=== PATIENT | male | born 1950 | race African-American/Black ===

== ENCOUNTER 2017-10-02 18:02 | Emergency (ER) | payer BC, MEDICARE ==
[2017-10-02] MEDS ORDERED: Ibuprofen 200 MG TAB ONE (19:32)
[2017-10-02] MEDS ORDERED: Acetaminophen 500 MG TAB ONE (20:54)
[2017-10-02 21:03] LABS: Hemoglobin 10.9 g/dL (14.0-18.0); Mean Corpuscular HGB CONC 30.1 g/dL (32.0-36.0); Mean Corpuscular Hemoglobin 22.5 pg (27.0-31.0); Mean Corpuscular Volume 74.8 fl (80.0-94.0); Mean Platelet Volume 8.5 fL (7.4-10.4); Platelet Count 289 thou/uL (130-400); Red Blood Cell (RBC) Count 4.86 mill/uL (4.70-6.10); White Blood Cell (WBC) Count 11.8 thou/uL (4.8-10.8)
--- NOTE | 2017-10-02 21:03 | RAD ---
CHEST TWO VIEW: History: Cough. Comparison: None. FINDINGS: Lungs are clear. No pneumothorax or effusion. Lungs are hyperinflated. There is a nodules present in the right lower lobe. Most likely calcified granuloma given how well it is visualized and measures under 3 mm. IMPRESSION: 1. Lung hyperinflation suggestive of obstructive disease. 2. 3 mm nodule right lung base, likely a calcified granuloma. Follow up radiograph in 6 months recomm ended. CODE: Lung nodule POS: [facility]
[2017-10-02 21:23] LABS: ALT (SGPT) 22 U/L (8-55); AST (SGOT) 26 U/L (5-34); Albumin 4.2 g/dL (3.4-4.8); Alkaline Phosphatase 74 U/L (40-150); Anion Gap 13 mmol/L (10-20); BUN (Urea Nitrogen) 12 mg/dL (8.4-25.7); Bilirubin, Total 0.5 mg/dL (0.2-1.2); Calc. Creatinine Clearance 0 mL/min (70-130); Calcium 9.8 mg/dL (7.8-10.44); Carbon Dioxide 25 mmol/L (23-31); Chloride 98 mmol/L (98-107); Estimated GFR-MDRD 74; Globulin 4.5 g/dL (2.4-3.5); Glucose 142 mg/dL (80-115); Potassium 4.1 mmol/L (3.5-5.1); Protein, Total 8.7 g/dL (5.8-8.1); Sodium 132 mmol/L (136-145)
[2017-10-02 21:29] LABS: #Monocytes 1.3 thou/uL (0.11-0.59); #Neutrophils 8.5 thou/uL (1.40-6.50); %Basophils 0.1 % (0.0-1.0); %Eosinophils 0.1 % (0.0-10.0); %Lymphocytes 16.9 % (21.0-51.0); %Monocytes 10.9 % (0.0-10.0); %Neutrophils 71.9 % (42.0-75.0); Hypochromia SLIGHT = 6-15 cells (100X) (0-5/hpf); MDiff Complete? YES; Microcytosis SLIGHT = 6-15 cells (100X) (0-5/hpf)
== END 2017-10-02 23:10 | disposition home or self-care (01) ==
LOC: ERS 18:02
DX: B34.9 Viral infection, unspecified (principal); I10 Essential (primary) hypertension; E11.9 Type 2 diabetes mellitus without complications; J44.9 Chronic obstructive pulmonary disease, unspecified
CPT/HCPCS: 71046; 80053; 83605; 83880; 85025; 85379; 94640; 96360; J7620

== ENCOUNTER 2017-10-13 08:12 | Observation (INO) | payer BC, MEDICARE ==
[2017-10-13 08:40] LABS: #Eosinphils 0.1 thou/uL (0.0-0.7); #Lymphocytes 1.7 thou/uL (1.20-3.40); #Monocytes 1.1 thou/uL (0.11-0.59); #Neutrophils 8.2 thou/uL (1.40-6.50); %Basophils 0.1 % (0.0-1.0); %Eosinophils 0.7 % (0.0-10.0); %Neutrophils 74.3 % (42.0-75.0); Hemoglobin 10.7 g/dL (14.0-18.0); Mean Corpuscular HGB CONC 29.2 g/dL (32.0-36.0); Mean Corpuscular Volume 75.5 fl (80.0-94.0); Mean Platelet Volume 8.5 fL (7.4-10.4); Platelet Count 339 thou/uL (130-400); RBC Distribution Width 16.3 % (11.5-14.5); Red Blood Cell (RBC) Count 4.84 mill/uL (4.70-6.10)
[2017-10-13 08:59] LABS: ALT (SGPT) 15 U/L (8-55); AST (SGOT) 15 U/L (5-34); Albumin 3.8 g/dL (3.4-4.8); Alkaline Phosphatase 57 U/L (40-150); Anion Gap 13 mmol/L (10-20); BUN (Urea Nitrogen) 10 mg/dL (8.4-25.7); Bilirubin, Total 0.5 mg/dL (0.2-1.2); Calc. Creatinine Clearance 0 mL/min (70-130); Calcium 9.4 mg/dL (7.8-10.44); Carbon Dioxide 24 mmol/L (23-31); Chloride 103 mmol/L (98-107); Estimated GFR-MDRD 85; Globulin 4.6 g/dL (2.4-3.5); Glucose 157 mg/dL (80-115); Potassium 3.8 mmol/L (3.5-5.1); Protein, Total 8.4 g/dL (5.8-8.1); Sodium 136 mmol/L (136-145)
[2017-10-13 09:03] LABS: CKMB 0.5 ng/mL (0-6.6); Troponin I 0.055 ng/mL (< 0.028)
--- NOTE | 2017-10-13 09:09 | RAD ---
CHEST 2 VIEWS: Date: 10/13/17 HISTORY: Chest pain. COMPARISON: Chest radiograph from 10/02/17. FINDINGS: Lungs are mildly hyperinflated. No focal air space consolidation, pneumothorax, or effusion. Right lo wer lobe calcified granuloma. IMPRESSION: No acute intrathoracic abnormality. No significant change. POS: [facility]
[2017-10-13] MEDS ORDERED: Acetaminophen 325 MG TAB ONE (09:25)
[2017-10-13 09:28] LABS: Hypochromia MODERATE=16-30 cells (100X) (0-5/hpf); MDiff Complete? YES; Microcytosis MODERATE=15-30 cells (100X) (0-5/hpf); Polychromasia SLIGHT = 2-3 cells (100X) (0-2/hpf)
[2017-10-13] MEDS ORDERED: Albuterol Sulfate 2.5 mg/0.5 ml Neb ONE (09:37)
--- NOTE | 2017-10-13 10:51 | CT ---
CT ARTERIOGRAM CHEST WITH IV CONTRAST AND 3D MIP IMAGING: History: Dyspnea. Chest pain. FINDINGS: No comparison. There is good contrast opacification of the pulmonary arteries and thoracic aorta with normal branching of the great vessels. There is calcification in the arterial structures. Lungs are hyperinflated. Scattered tiny nonspecific calcified and noncalcified granulomata are appare nt. There is no pleural fluid, pneumothorax, or mediastinal adenopathy visible. IMPRESSION: 1. No CT evidence of pulmonary embolus. 2. Atherosclerosis. 3. COPD. POS: [facility]
[2017-10-13] MEDS ORDERED: Enoxaparin Sodium 100 MG/ML SYRINGE ONE (12:56)
[2017-10-13 13:37] LABS: Troponin I 0.061 ng/mL (< 0.028)
--- NOTE | 2017-10-13 14:27 | HP ---
PRIMARY CARE PHYSICIAN: This patient is recently moved from [place] to the [facility], so this is a city call admission. REASON FOR ADMISSION: Dyspnea on exertion, elevated troponin. HISTORY OF PRESENT ILLNESS: This is a 67-year-old -Portuguese male, who presented to the emerge ncy room with complaint of increasing shortness of breath. The patient reports that about 2 weeks ag o, he had a flu-like illness. At that time, he came to the emergency room and he was tested for infl uenza screen, which was negative, but he was told that he had a viral infection. At that time, the p atient was having fever, runny nose, and sore throat. He was also having increasing cough productive of yellowish sputum, and for the last one week, he is experiencing dyspnea on exertion. Even after walking a few steps, he gets out of breath. While resting, he is completely fine. After exertion, h e has to relax for a few minutes to continue work and his capacity day by day was decreasing. He den ies any orthopnea, PND, or leg swelling. He denies any currently fever. He denies any hemoptysis, c barb tenderness, dizziness, syncope. He denies any chest pain, but only chest pain happens with cough and patient also has lower back pain, which is also related with cough. The patient was not able to do his routine work at workplace and that is why he decided to come to the ER for evaluation. In the emergency room today, his WBC count is elevated. His hemoglobin is 10.7. He denies any melen a or hematochezia. His D-dimer was elevated, but CT angio was done, which was negative for pulmonary embolism. His troponin was indeterminant range. REVIEW OF SYSTEMS: The following complete review of systems was negative, unless otherwise mentioned in the HPI or below: Constitutional: Weight loss or gain, ability to conduct usual activities. Ski n: Rash, itching. Eyes: Double vision, pain. ENT/Mouth: Nose bleeding, neck stiffness, pain, tenderness. Cardiovascular: Palpitations, dyspnea on exertion, orthopnea. Respiratory: Shortness of breath, wheezing, cough, hemoptysis, fever or night sweats. Gastrointestinal: Poor appetite, abdominal pain, heartburn, nausea, vomiting, constipation, or diarrhea. Genitourinary: Urgency, frequency, dysuria, nocturia. Musculoskeletal: Pain, swelling. Neurologic/Psychiatric: Anxiety, depression. Allergy/Immunologic: Skin rash, bleeding tendency. Please see my HPI for pertinent positives and negatives. All other review of system reviewed and ne gative except as mentioned in the HPI. PAST MEDICAL HISTORY: Diabetes type 2, hypertension, dyslipidemia, COPD, ex-smoker. PAST SURGICAL HISTORY: Reviewed and negative. PAST PSYCHIATRIC HISTORY: Reviewed and negative. SOCIAL HISTORY: Patient is a former smoker. He quit smoking 3 years ago. He denies any alcohol or other illicit drug abuse. 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 FAMILY HISTORY: No strong family history of premature coronary artery disease, stroke or cancer. ALLERGIES: No known drug allergies. CURRENT HOME MEDICATIONS: Benicar 20 mg p.o. daily, Cialis 20 mg p.o. daily, Symbicort 2 puff inhala tion b.i.d., Lipitor 10 mg p.o. daily, Farxiga 10 mg p.o. daily, and Janumet XR 2 tablets p.o. daily. EMERGENCY ROOM COURSE: Patient is given Lovenox 1 mg per kg, IV fluid 1 liter, aspirin 324 mg, Atrov ent nebulization, and albuterol nebulization, as well as Tylenol 650 mg. PHYSICAL EXAMINATION: VITAL SIGNS: On arrival, blood pressure 111/76, pulse 134, respiratory rate 21, temperature 99.1, sa turation 93% on room air, weight 78.4 kilograms. GENERAL: Patient is currently alert, awake, in no obvious acute distress. HEENT: Normocephalic, atraumatic. Eyes: Pupils round, reactive to light. Extraocular muscles inta ct. ENT: Oropharynx within normal limits. Moist mucous membranes. No oral lesions. No pharyngeal eryt zackery, no exudates. NECK: Supple, no JVD, no thyromegaly, no carotid bruit, no jugular venous distention. LUNGS: Clear to auscultation, no wheezing, no rhonchi, no rales. CARDIAC: S1 and S2, regular, tachycardia, no murmur, no gallop, no rub. ABDOMEN: Soft, bowel sounds present, nontender, nondistended. No organomegaly, no mass, no suprapub ic tenderness. BACK: Patient does have bilateral paraspinal lumbar tenderness, no midline tenderness, no CVA tender ness. EXTREMITIES: Upper extremity passive movement of all joints are normal. Lower extremity, no edema. Good peripheral pulsation. SKIN: No skin rash. HEMATOLOGICAL: No lymphadenopathy. PSYCHIATRIC: Normal affect. SIGNIFICANT LABORATORY DATA: EKG showing sinus tachycardia, no acute ischemic changes. Chest x-ray showing emphysematous changes, but no consolidation. CT angio negative for pulmonary embolism, consi stent with atherosclerosis and COPD. CBC: WBC 11.0, hemoglobin 10.7, MCV 75.5, platelets 339. D-di alejandro 3.97. BMP: Sodium 136, potassium 3.8, chloride 103, carbon dioxide 24, anion gap 13, BUN 10, cr eatinine 1.06, glucose 157, calcium 9.4. LFT: AST 15, ALT 15, alkaline phosphatase 57, albumin 3.8. CK-MB 0.5, troponin I 0.055. BNP less than 10. ASSESSMENT AND PLAN: 1. Dyspnea on exertion. This patient had prolonged upper respiratory infection. His recent flu scr een was negative. After that, patient was having on and off cough, sore throat, and now patient's sy mptoms is progressed with dyspnea on exertion. At this point, differential diagnosis is pretty much broad. I am suspecting he might have underlying bronchitis given leukocytosis and that bronchitis ca using his dyspnea on exertion. Given his troponin is elevated and that is why underlying angina equi valent is also possible given his risk factors for coronary artery disease including hypertension, di abetes, dyslipidemia, and ex-smoker. His D-dimer was elevated, but CT angio is negative for pulmonar y embolism; in this way, we have completely excluded thromboembolic disorder. Viral illness and julian l cardiomyopathy is possible and that is why we are going to obtain echocardiography though BNP is no rmal. Considering angina equivalent in diabetic, patient will also perform exercise stress test for further evaluation to rule out any silent ischemia, and we will do serial cardiac enzymes. At this p oint, making all of this differential under treatment, we will continue with aspirin 325 mg p.o. sheng y, nitropatch q.8 hourly, nitroglycerin p.r.n., DuoNeb q.6 hourly, we will also start empiric Solu-Me drol 20 mg IV q.6 hourly, Mucinex 600 mg twice daily, and empiric antibiotic therapy with Levaquin 75 0 mg p.o. daily. We will obtain echocardiography to assess ejection fraction and other structural ab normality and we will closely monitor on telemetry floor for any arrhythmias. 2. Acute bronchitis with chronic obstructive pulmonary disease with possible flare up and that is wh y we will continue DuoNeb therapy q.6 hourly, Dulera two puff inhalation b.i.d., and Solu-Medrol 20 m g IV q.6 hourly, Mucinex 600 mg twice daily, and Levaquin 750 mg p.o. daily. We will also check julian l panel. 3. Elevated troponin, rule out acute coronary syndrome. We will do serial cardiac enzymes x3. Cont inue aspirin 324 mg p.o. daily, check lipid profile for risk stratification. We will check hemoglobi n A1c for overall diabetes control and we will obtain echocardiography and will perform exercise stre ss test tomorrow morning. 4. Microcytic anemia. The patient will check ferritin and iron study tomorrow morning. We will nestor ck stool for guaiac, but this patient will need outpatient colonoscopy evaluation for screening as we ll, but that will do as an outpatient basis. We will continue ferrous sulfate 325 mg p.o. daily. 5. Diabetes type 2. We will continue Farxiga 10 mg p.o. daily upon discharge. We will continue Taz umet 100 mg p.o. daily. We will hold on metformin therapy because of CT angio. We will continue ins ulin as per sliding scale per protocol. Diabetic diet will be given. 6. Dyslipidemia. Check lipid profile tomorrow and continue Lipitor 10 mg p.o. at bedtime. 7. Hypertension. Continue Benicar 20 mg p.o. daily. 8. Sinus tachycardia. We have ruled out thromboembolic disorder with CT angio. We will check urine drug screen. 9. Systemic inflammatory response syndrome criteria. This patient has leukocytosis, low grade fever , tachycardia, and most likely related to viral infection. He does not have any obvious infiltration . Atypical pneumonia is possibility and that is why we will continue with the Levaquin therapy. 10. Deep venous thrombosis prophylaxis. Patient is already given Lovenox 1 mg per kg in the emergen cy room. 11. Gastrointestinal prophylaxis. Pepcid 20 mg p.o. b.i.d.. 12. Back pain. Patient's back pain is related with coughing and from a sprain. The patient will ne ed symptomatic treatment with [place] p.r.n. basis while in hospital. 13. Chest pain. The patient's chest pain is related with coughing and chest wall discomfort, but we are in any way ruling out cardiac etiology. Disposition plan based on clinical course. We are expecting patient's stay in hospital 24-48 hours. Plan of care discussed with the patient in detail.
[2017-10-13] MEDS ORDERED: Loratadine 10 MG TAB PO PRN (15:09)
[2017-10-13] MEDS ORDERED: HYDROcodone/Acetaminophen 5/325 mg Tablet PO PRN (15:09)
[2017-10-13] MEDS ORDERED: HumaLOG 300 UNITS/3 ML VIAL SC PRN ×2 (15:09)
[2017-10-13] MEDS ORDERED: Acetaminophen 325 MG TAB PO PRN (15:09)
[2017-10-13] MEDS ORDERED: Eucerin (Mineral Oil/Petrolatum,White) 30 gm Jar TOP PRN (15:09)
[2017-10-13] MEDS ORDERED: Dextrose 5% in Water 1,000 ML IV PRN (15:09)
[2017-10-13] MEDS ORDERED: Loperamide HCl 2 MG CAP PO PRN (15:09)
[2017-10-13] MEDS ORDERED: Nitroglycerin 0.4 MG TAB (25 Tab Bottle) SL PRN (15:09)
[2017-10-13] MEDS ORDERED: Ondansetron HCl/PF 4 MG/2 ML Vial IVP PRN (15:09)
[2017-10-13] MEDS ORDERED: Dextrose 50% Abboject 50 ML SYRINGE SLOW IVP PRN (15:09)
[2017-10-13] MEDS ORDERED: Diabetic Tussin 200 MG/10 ML UDCUP PO PRN (15:09)
[2017-10-13] MEDS ORDERED: Sodium Chloride 0.65% Nasal 44 ML BOT EA NARE PRN (15:09)
[2017-10-13] MEDS ORDERED: Chloraseptic Spray 180 ml Bottle PO PRN (15:09)
[2017-10-13] MEDS ORDERED: Ondansetron ODT 4 MG TAB PO PRN (15:09)
[2017-10-13] MEDS ORDERED: Mag-Al 1200 mg/1200 mg/30 ML UDCUP PO PRN (15:09)
[2017-10-13] MEDS ORDERED: Artificial Tear Sol 15 ML BOT EA EYE PRN (15:09)
[2017-10-13] MEDS ORDERED: Milk Of Magnesia 30 ML UDCUP PO PRN (15:09)
[2017-10-13] MEDS ORDERED: Zolpidem Tartrate 5 MG TAB PO PRN (15:09)
[2017-10-13] MEDS ORDERED: Benzonatate 100 MG CAP PO PRN (15:09)
[2017-10-13] MEDS ORDERED: hydrALAZINE 20 MG/ML VIAL SLOW IVP PRN (15:09)
[2017-10-13] MEDS ORDERED: Senokot 8.6 MG TAB PO PRN (15:09)
[2017-10-13 15:22] VITALS: BMI 23.1
[2017-10-13 16:15] LABS: Troponin I 0.056 ng/mL (< 0.028)
[2017-10-13] MEDS ORDERED: Iopamidol 370 76% 100 ML VIAL ONE (16:27)
[2017-10-13 18:35] LABS: Bilirubin Negative (Negative); Blood, Urine Negative (Negative); Clarity CLEAR (Clear); Glucose, Urine (Dipstick) >=1000 mg/dL (Negative); Leukocyte Negative (Negative); Nitrite Negative (Negative); Protein, Urine (Dipstick) Negative (Neg-Trace)
[2017-10-13 18:38] LABS: Bacteria/HPF None Seen HPF (None Seen); Hyaline Casts/LPF 0-3 HYALINE CAST LPF (0-3 Hyaline); RBC/HPF 0-3 HPF (0-3); Squamous Epithelial None Seen HPF (0-3); WBC/HPF None Seen HPF (0-3)
[2017-10-13 18:47] LABS: Amphetamine Not Detected (NotDetected); Barbiturates Screen Not Detected (NotDetected); Benzodiazepine Screen Not Detected (NotDetected); Cocaine Metabolite Screen Not Detected (NotDetected); Medtox Control Line Valid? VALID (VALID); Medtox Reader # READER 4; Methadone Not Detected (NotDetected); Methamphetamine Not Detected (NotDetected); Opiate Screen Not Detected (NotDetected); Oxycodone Screen Not Detected (NotDetected); Phencyclidine (PCP) Not Detected (NotDetected); Specific Gravity, Urine 1.049 (1.002-1.036); THC/Cannabinoid Screen Not Detected (NotDetected); Tricyclic Screen Not Detected (NotDetected)
[2017-10-13] MEDS: guaiFENesin ER 600 MG TAB PO SCH (20:11)
[2017-10-13] MEDS: Famotidine 20 MG TAB PO SCH (20:11)
[2017-10-13] MEDS: Mometasone/Formoterol 120 PUFF INHALER INH SCH (20:43)
[2017-10-13] MEDS ORDERED: Atorvastatin Calcium 10 MG TAB PO SCH (21:00)
[2017-10-13] MEDS: Nitroglycerin 2% Ointment 1 INCH/1 GM Packet TOP SCH (21:36)
[2017-10-14] MEDS: Nitroglycerin 2% Ointment 1 INCH/1 GM Packet TOP SCH ×2 (05:54→14:46)
[2017-10-14 06:12] LABS: Anion Gap 14 mmol/L (10-20); BUN (Urea Nitrogen) 12 mg/dL (8.4-25.7); Calc. Creatinine Clearance 89 mL/min (70-130); Calcium 9.6 mg/dL (7.8-10.44); Carbon Dioxide 24 mmol/L (23-31); Cardiac Risk 3.6 (Less than 4.5); Chloride 104 mmol/L (98-107); Cholesterol 139 mg/dl (< 200 Desired); Estimated GFR-MDRD Greater than 90; Glucose 165 mg/dL (80-115); HDL Cholesterol 39 mg/dL (>60 Neg Risk); Iron Less than 8 ug/dL (65-175); Iron Binding Capacity, Total 329 mcg/dL (261-462); LDL Cholesterol, Calculated 92 mg/dL; Potassium 4.5 mmol/L (3.5-5.1); Sodium 137 mmol/L (136-145); Triglycerides 42 mg/dL (Less than 150)
[2017-10-14 06:27] LABS: #Lymphocytes 0.6 thou/uL (1.20-3.40); #Monocytes 0.1 thou/uL (0.11-0.59); %Basophils 0.1 % (0.0-1.0); %Eosinophils 0.1 % (0.0-10.0); %Lymphocytes 6.3 % (21.0-51.0); %Monocytes 0.9 % (0.0-10.0); %Neutrophils 92.7 % (42.0-75.0); Anisocytosis SLIGHT = 6-15 cells (100X) (0-5/hpf); Hypochromia SLIGHT = 6-15 cells (100X) (0-5/hpf); MDiff Complete? YES; Mean Corpuscular HGB CONC 28.9 g/dL (32.0-36.0); Mean Corpuscular Hemoglobin 21.6 pg (27.0-31.0); Mean Corpuscular Volume 74.8 fl (80.0-94.0); Mean Platelet Volume 8.6 fL (7.4-10.4); Microcytosis SLIGHT = 6-15 cells (100X) (0-5/hpf); Platelet Count 328 thou/uL (130-400); Red Blood Cell (RBC) Count 4.64 mill/uL (4.70-6.10); White Blood Cell (WBC) Count 8.7 thou/uL (4.8-10.8)
[2017-10-14] MEDS ORDERED: Ferrous Sulfate 325 MG TAB PO SCH (08:00)
[2017-10-14] MEDS ORDERED: Alogliptin 25 MG TAB PO SCH (09:00)
[2017-10-14] MEDS ORDERED: Aspirin 325 MG TAB PO SCH (09:00)
[2017-10-14] MEDS ORDERED: Prevnar 13-Val Conj/PF 0.5 ML SYRINGE IM ONE (09:00)
[2017-10-14] MEDS: Mometasone/Formoterol 120 PUFF INHALER INH SCH (09:44)
--- NOTE | 2017-10-14 09:58 | PDOC.PN ---
- Subjective Encounter Start Date: 10/14/17 Encounter Start Time: 08:10 -: old records requested/rev Patient seen and examined. No new complaints. No overnight events - Objective Resuscitation Status: Resuscitation Status FULL:Full Resuscitation MAR Reviewed: Yes Vital Signs & Weight: Vital Signs (12 hours) Temp Pulse Resp BP Pulse Ox 10/14/17 08:00 98.8 F 102 H 16 10/14/17 07:34 98.3 F 105 H 16 125/71 92 L 10/14/17 03:45 98.8 F 102 H 16 139/74 94 L 10/14/17 00:12 94 L 10/13/17 23:30 98.0 F 100 18 133/71 93 L Weight Weight 156 lb 1.6 oz I&O: 10/13/17 10/14/17 10/15/17 06:59 06:59 06:59 Intake Total 700 Output Total 700 Balance 0 Result Diagrams: 10/14/17 05:22 10/14/17 05:22 Additional Labs: Accuchecks 10/14/17 10/13/17 10/13/17 03:45 20:32 16:46 POC Glucose 168 H 146 H 130 H 10/13/17 14:04 POC Glucose 97 EKG Reviewed by me: Yes (sinus tachycardia) Phys Exam - Physical Examination Constitutional: NAD HEENT: PERRLA, moist MMs, sclera anicteric Neck: no JVD, supple Respiratory: no wheezing, no rales, no rhonchi Cardiovascular: RRR, no significant murmur, no rub Gastrointestinal: soft, non-tender, no distention, positive bowel sounds Musculoskeletal: no edema, pulses present Neurological: non-focal, normal sensation, moves all 4 limbs Lymphatic: no nodes Psychiatric: normal affect, A&O x 3 Skin: no rash, normal turgor Dx/Plan (1) Acute bronchitis Code(s): J20.9 - ACUTE BRONCHITIS, UNSPECIFIED Status: Acute Qualifiers: Bronchitis organism: unspecified organism Qualified Code(s): J20.9 - Acute bronchitis, unspecified (2) MAGDALENO (dyspnea on exertion) Code(s): R06.09 - OTHER FORMS OF DYSPNEA Status: Acute (3) Elevated troponin Code(s): R74.8 - ABNORMAL LEVELS OF OTHER SERUM ENZYMES Status: Acute (4) COPD (chronic obstructive pulmonary disease) Status: Chronic (5) Diabetes type 2, controlled Code(s): E11.9 - TYPE 2 DIABETES MELLITUS WITHOUT COMPLICATIONS Status: Chronic (6) Dyslipidemia Code(s): E78.5 - HYPERLIPIDEMIA, UNSPECIFIED Status: Chronic (7) Hypertension Code(s): I10 - ESSENTIAL (PRIMARY) HYPERTENSION Status: Chronic (8) Iron deficiency anemia Code(s): D50.9 - IRON DEFICIENCY ANEMIA, UNSPECIFIED Status: Chronic - Plan cont current plan of care, plan discussed w/ family, continue antibiotics, respiratory therapy * today ECho for EF * today stress test to rule out ischemia * continue COPD and bronchitis treatment * pt had colonoscopy about year ago per pt it was normal * discharge based on above mentioned test result. * medication reviewed as below * symptomatic treatment. Review of Systems - Review of Systems Constitutional: negative: fever, chills, sweats, weakness, malaise, other Eyes: negative: Pain, Vision Change, Conjunctivae Inflammation, Eyelid Inflammation, Redness, Other ENT: negative: Ear Pain, Ear Discharge, Nose Pain, Nose Discharge, Nose Congestion, Mouth Pain, Mouth Swelling, Throat Pain, Throat Swelling, Other Respiratory: SOB with Excertion. negative: Cough, Dry, Shortness of Breath, Hemoptysis, Pleuritic Pain, Sputum, Wheezing Cardiovascular: negative: chest pain, palpitations, orthopnea, paroxysmal nocturnal dyspnea, edema, light headedness, other Gastrointestinal: negative: Nausea, Vomiting, Abdominal Pain, Diarrhea, Constipation, Melena, Hematochezia, Other Genitourinary: negative: Dysuria, Frequency, Incontinence, Hematuria, Retention , Other Musculoskeletal: negative: Neck Pain, Shoulder Pain, Arm Pain, Back Pain, Hand Pain, Leg Pain, Foot Pain, Other Skin: negative: Rash, Lesions, Raymundo, Bruising, Other Neurological: negative: Weakness, Numbness, Incoordination, Change in Speech, Confusion, Seizures, Other - Medications/Allergies Allergies/Adverse Reactions: Allergies Allergy/AdvReac Type Severity Reaction Status Date / Time No Known Allergies Allergy Verified 10/13/17 15:14 Medications: Current Medications Acetaminophen (Tylenol) 650 mg PO Q4H PRN PRN Reason: Headache/Fever or Pain Hydrocodone Bitart/Acetaminophen ([place] 5/325) 1 tab PO Q4H PRN PRN Reason: Moderate Pain (4-6) Last Admin: 10/13/17 20:14 Dose: 1 tab Al Hydroxide/Mg Hydroxide (Maalox) 30 ml PO Q6H PRN PRN Reason: Heartburn or Indigestion Albuterol/Ipratropium (Duoneb) 3 ml NEB [id number] [facility] Last Admin: 10/14/17 09:43 Dose: Not Given Alogliptin Benzoate (Alogliptin) 25 mg PO DAILY [facility] Artificial Tears (Tears Renewed 15ml Bottle) 0 drop EA EYE PRN PRN PRN Reason: Dry Eyes Aspirin (Aspirin) 325 mg PO DAILY [facility] Atorvastatin Calcium (Lipitor) 10 mg PO HS [facility] Last Admin: 10/13/17 20:11 Dose: 10 mg Benzonatate (Tessalon) 100 mg PO Q4H PRN PRN Reason: Cough Dextrose/Water (Dextrose 50%) 25 gm SLOW IVP PRN PRN PRN Reason: Hypoglycemia Famotidine (Pepcid) 20 mg PO BID [facility] Last Admin: 10/13/17 20:11 Dose: 20 mg Ferrous Sulfate (Feosol) 325 mg PO QAM-WM [facility] Glucagon (Glucagon) 1 mg IM PRN PRN PRN Reason: Hypoglycemia Guaifenesin (Robitussin Sf) 200 mg PO Q4H PRN PRN Reason: Cough Guaifenesin (Mucinex) 600 mg PO Q12HR [facility] Last Admin: 10/13/17 20:11 Dose: 600 mg Hydralazine HCl (Apresoline) 10 mg SLOW IVP Q4H PRN PRN Reason: Systolic BP > 180 Dextrose/Water (D5w) 1,000 mls @ 0 mls/hr IV .Q0M PRN; As Directed PRN Reason: Hypoglycemia Insulin Human Lispro (Humalog) 0 units SC .MODERATE SLIDING SC PRN PRN Reason: Moderate Correctional Scale Insulin Human Lispro (Humalog) 0 units SC .BEDTIME SLIDING SC PRN PRN Reason: Bedtime Correctional Scale Levofloxacin (Levaquin) 750 mg PO 0600 [facility] Last Admin: 10/14/17 05:53 Dose: 750 mg Loperamide HCl (Imodium) 2 mg PO PRN PRN PRN Reason: Diarrhea/Loose Stools Loratadine (Claritin) 10 mg PO DAILYPRN PRN PRN Reason: Sinus Symptoms Magnesium Hydroxide (Milk Of Magnesium) 30 ml PO DAILYPRN PRN PRN Reason: Constipation Methylprednisolone Sodium Succinate (Solu-Medrol) 20 mg IVP Q6HR [facility] Last Admin: 10/14/17 05:54 Dose: 20 mg Mineral Oil/White Petrolatum (Eucerin Cream) 0 gm TOP BIDPRN PRN PRN Reason: Dry Skin Mometasone Furoate/Formoterol Fumar (Dulera 200 Mcg/5 Mcg Inhaler) 2 puff INH BID-RT [facility] Last Admin: 10/14/17 09:44 Dose: Not Given Nitroglycerin (Nitrostat) 0.4 mg SL Q5MIN PRN PRN Reason: Chest Pain Nitroglycerin (Nitro-Bid 2% Ointment) 0.5 inch TOP Q8HR [facility] Last Admin: 10/14/17 05:54 Dose: Not Given Olmesartan (Benicar) 20 mg PO DAILY [facility] Ondansetron HCl (Zofran Odt) 4 mg PO Q6H PRN PRN Reason: Nausea/Vomiting Ondansetron HCl (Zofran) 4 mg IVP Q6H PRN PRN Reason: Nausea/Vomiting Phenol (Chloraseptic [place] 180 Ml Bot) 0 ml PO PRN PRN PRN Reason: Sore Throat Senna (Senokot) 2 tab PO HSPRN PRN PRN Reason: Constipation Sodium Chloride (Kemper Nasal [place] 0.65%) 0 ml EA NARE QIDPRN PRN PRN Reason: Nasal Congestion Zolpidem Tartrate (Ambien) 5 mg PO HSPRN PRN PRN Reason: Insomnia
[2017-10-14] MEDS: Famotidine 20 MG TAB PO SCH (11:29)
[2017-10-14] MEDS: guaiFENesin ER 600 MG TAB PO SCH (11:29)
--- NOTE | 2017-10-14 12:12 | NM ---
RADIONUCLIDE STRESS REST MYOCARDIAL PERFUSION SCAN WITH CT ATTENUATION AND SPECT IMAGING LEFT VENTRICULAR WALL MOTION EVALUATION AND EJECTION FRACTION: HISTORY: Chest pain. FINDINGS: Lexiscan protocol was used. There is homogeneous uptake of radiotracer throughout the left ventricul ar myocardium without focal perfusion defect or reversibility evident. QGS analysis of gated SPECT i mages shows o focal wall motion abnormalities. Left ventricular ejection fraction is calculated at 8 1%. IMPRESSION: Normal myocardial perfusion scan. Normal left ventricular ejection fraction. POS: [facility]
--- NOTE | 2017-10-14 13:50 | DIS ---
DATE OF ADMISSION: 10/13/2017 DATE OF DISCHARGE: 10/14/2017 PRIMARY CARE PHYSICIAN: [facility] call admission. DISCHARGE DISPOSITION: Home. PRIMARY DISCHARGE DIAGNOSES: 1. Dyspnea on exertion, likely due to acute bronchitis. 2. Elevated troponin, likely due to demand ischemia. 3. Chronic obstructive pulmonary disease exacerbation. SECONDARY DISCHARGE DIAGNOSES: Iron deficiency anemia, hypertension, dyslipidemia, diabetes type 2, and chronic obstructive pulmonary disease. PRIMARY PROCEDURE/OPERATION: None. RADIOLOGICAL INVESTIGATION: Chest x-ray had emphysematous changes. CT angio was showing COPD change s, but no pulmonary embolism. Stress test is negative for any reversible ischemia with normal EF. E chocardiography result is pending. SIGNIFICANT LABORATORY DATA: WBC 8.7, hemoglobin 10.0, and platelets 328. D-dimer 3.97. Sodium 137 , potassium 4.5, BUN 12, creatinine 0.83, and calcium 9.6. Ferritin 28.7, LDL 92, LFT normal. Tropo boby 0.056. Urinalysis normal. Urine drug screen negative. Respiratory virus panel negative. DISCHARGE MEDICATIONS: Aspirin 325 mg p.o. daily, Lipitor 10 mg p.o. daily, Symbicort 1 puff inhalat ion b.i.d., Farxiga 10 mg p.o. daily, Pepcid 20 mg p.o. b.i.d., ferrous sulfate 325 mg p.o. daily, Le vaquin 750 mg p.o. daily for 5 more days, Benicar with HCTZ one tablet p.o. daily, prednisone 20 mg p .o. b.i.d. for 5 days, Janumet two tablets in the evening and one tablet in morning, Cialis 20 mg as directed, Ventolin inhaler 2 puffs q.6 hourly p.r.n. CONTRAINDICATIONS: None. CODE STATUS: FULL CODE. INPATIENT DIRECTOR OF GOVERNMENT SALES: None. ALLERGIES: No known drug allergy. DISCHARGE PLAN: Post hospital, patient will follow up with primary care physician in 1 week. HOSPITAL COURSE: A 67-year-old male with above-mentioned medical problem who was admitted by me. Pl ease see my H&P for further details. He was having dyspnea on exertion. He recently suffered from v iral infection and since then he was having increasing dyspnea on exertion and cough. He was not hav ing any chest pain. He was brought to ER and he had elevated D-dimer that is why CT angio was done w hich was negative for PE. Chest x-ray with CT angio consistent with emphysema and COPD changes. He has responded well with DuoNeb therapy. We also gave him so Solu-Medrol while in the hospital and re spiratory therapy was continued. He had elevated troponin and to rule out angina equivalent we did s tress test and that was completely normal. His EF was also normal. His BNP is normal. His cardiac enzymes indeterminant range and that is why we did echocardiography as well. Official report is pend ing, but we are not suspecting any systolic or diastolic heart failure. He has iron deficiency anemi a, but he reported that he already had colonoscopy done as an outpatient basis. At this point, the patient is on room air. He is hemodynamically stable. The patient is seen and ex amined at bedside today. All test results discussed with the patient and patient is medically stable for discharge after echocardiography.
[2017-10-14] MEDS ORDERED: Regadenoson 0.4 MG/5 ML SYRINGE ONE (16:07)
[2017-10-14 17:48] VITALS: BP 140/71; TEMP 98
== END 2017-10-14 17:54 | disposition home or self-care (01) ==
LOC: ERS 08:12 → 2SW 12:43
PROVIDERS: ADMIT Internal Medicine; ATTEND Internal Medicine
DX: R06.09 Other forms of dyspnea (principal); R79.89 Other specified abnormal findings of blood chemistry; J44.1 Chronic obstructive pulmonary disease with (acute) exacerbation; J20.9 Acute bronchitis, unspecified; J44.0 Chronic obstructive pulmonary disease with (acute) lower respiratory infection; D50.9 Iron deficiency anemia, unspecified; I10 Essential (primary) hypertension; E78.5 Hyperlipidemia, unspecified; E11.9 Type 2 diabetes mellitus without complications; R79.1 Abnormal coagulation profile; Z87.891 Personal history of nicotine dependence; R00.0 Tachycardia, unspecified; M54.9 Dorsalgia, unspecified; R07.89 Other chest pain; Z79.84 Long term (current) use of oral hypoglycemic drugs; Z79.2 Long term (current) use of antibiotics; Z79.82 Long term (current) use of aspirin; Z79.52 Long term (current) use of systemic steroids; Z79.899 Other long term (current) drug therapy
CPT/HCPCS: 36415; 36416; 71046; 71275; 78452; 80048; 80053; 80061; 80306; 81001; 82553; 82728; 83540; 83550; 83880; 84484; 85025; 85379; 87633; 87798; 90471; 90670; 93005; 93017; 93306; 94640; 94664; 96360; 96361; 96372; 96374; 96376; A9500; G0009; G0378; J1650; J2785; J2920; J7611; J7620

== ENCOUNTER 2017-12-21 12:55 | Emergency (ER) | payer BC, MEDICARE ==
--- NOTE | 2017-12-21 13:50 | RAD ---
PA AND LATERAL VIEWS CHEST: HISTORY: Foreign body. COMPARISON: 10/13/2017 FINDINGS: The heart size is normal. The aorta is tortuous. The lungs are well expanded without focal areas of consolidation, pneumothorax, or pleural effusions. A tiny calcified granuloma in the right lower kwan ng is again seen. No radiopaque foreign bodies are identified. No acute osseous abnormalities ident ified. IMPRESSION: No acute process. POS: [facility]
== END 2017-12-21 15:30 | disposition left against medical advice (07) ==
LOC: ERS 12:55
DX: Z53.21 Procedure and treatment not carried out due to patient leaving prior to being seen by health care provider (principal)
CPT/HCPCS: 71046

== ENCOUNTER 2018-07-26 10:50 | Emergency (ER) | payer BC, MEDICARE ==
[2018-07-26 11:41] LABS: #Eosinphils 0.1 thou/uL (0.0-0.7); #Lymphocytes 2.1 thou/uL (1.20-3.40); #Monocytes 0.6 thou/uL (0.11-0.59); #Neutrophils 5.2 thou/uL (1.40-6.50); %Basophils 0.5 % (0.0-1.0); %Eosinophils 0.7 % (0.0-10.0); %Monocytes 7.4 % (0.0-10.0); %Neutrophils 65.4 % (42.0-75.0); Hemoglobin 8.8 g/dL (14.0-18.0); Mean Corpuscular HGB CONC 27.8 g/dL (32.0-36.0); Mean Corpuscular Hemoglobin 19.5 pg (27.0-31.0); Mean Platelet Volume 8.7 fL (7.4-10.4); Platelet Count 341 thou/uL (130-400); RBC Distribution Width 16.5 % (11.5-14.5); Red Blood Cell (RBC) Count 4.54 mill/uL (4.70-6.10)
--- NOTE | 2018-07-26 11:44 | RAD ---
SINGLE VIEW CHEST: HISTORY: High blood pressure and shortness of breath. COMPARISON: None. FINDINGS: Single view of the chest show normal sized cardiomediastinal silhouette. There is no evidence of cons olidation, mass, or pleural effusion. The bones are unremarkable. IMPRESSION: No evidence of acute cardiopulmonary disease. POS: [facility]
[2018-07-26 11:50] LABS: ALT (SGPT) 11 U/L (8-55); AST (SGOT) 16 U/L (5-34); Albumin 4.2 g/dL (3.4-4.8); Alkaline Phosphatase 63 U/L (40-150); Anion Gap 10 mmol/L (10-20); BUN (Urea Nitrogen) 7 mg/dL (8.4-25.7); Bilirubin, Total 0.3 mg/dL (0.2-1.2); CK (CPK) 93 U/L (30-200); Calc. Creatinine Clearance 0 mL/min (70-130); Calcium 9.1 mg/dL (7.8-10.44); Carbon Dioxide 26 mmol/L (23-31); Chloride 105 mmol/L (98-107); Estimated GFR-MDRD Greater than 90; Globulin 3.9 g/dL (2.4-3.5); Glucose 95 mg/dL (80-115); Protein, Total 8.1 g/dL (5.8-8.1); Sodium 137 mmol/L (136-145)
[2018-07-26 11:54] LABS: Bilirubin Negative (Negative); Blood, Urine Negative (Negative); Clarity CLEAR (Clear); Glucose, Urine (Dipstick) >=1000 mg/dL (Negative); Leukocyte Negative (Negative); Nitrite Negative (Negative); Protein, Urine (Dipstick) Negative (Neg-Trace); Specific Gravity, Urine 1.027 (1.002-1.036); Urobilinogen 0.2 mg/dL (0.2-1.0); pH, Urine 5.5 (5.0-9.0)
[2018-07-26 11:54] LABS: Troponin I Less than 0.010 ng/mL (< 0.028)
[2018-07-26 12:07] LABS: Hypochromia MODERATE=16-30 cells (100X) (0-5/hpf); MDiff Complete? YES; Microcytosis MODERATE=15-30 cells (100X) (0-5/hpf); PLT Morphology Comment Appears Adequate; Polychromasia MODERATE = 3-4 cells (100X) (0-2/hpf); Reflex for Review?? NO
== END 2018-07-26 12:47 | disposition home or self-care (01) ==
LOC: ERS 10:50
DX: I10 Essential (primary) hypertension (principal); E11.9 Type 2 diabetes mellitus without complications; J44.9 Chronic obstructive pulmonary disease, unspecified; Z87.891 Personal history of nicotine dependence; Z79.899 Other long term (current) drug therapy
CPT/HCPCS: 36416; 71045; 80053; 81003; 82550; 82553; 84484; 85025; 93005